=== PATIENT | female | born 1990 | race Caucasian/White ===

== ENCOUNTER 2017-11-30 11:17 | Emergency (ER) | payer OTHER ==
[~2017-11-30] VITALS: Ht 160 cm; Wt 86.2 kg
[~2017-11-30 11:17] MED LIST: ACEBUTCAFT PO; ALBU90I INH; ALBU90OI INH; ALBU90OI6 INH; ALBU90OI61 INH; AMOX500 PO; AMOX875 PO; AZIT250 PO; BENZ100A PO; CYCL10 PO; Cyclobenzaprine5 MG PO; DOXY100 PO; FLUO20 PO; FOLI1 PO; HYDACE5 PO; HYDACE5325 PO; LISI10 PO; METPRE4DP PO; MULVITMINE PO; NAPR550 PO; Naprosyn500 MG PO; OXYACE5T PO; PARO30 PO; PENVK500 PO; PERM5TC TOP; PRED20 PO; PREN-16 PO; PROCODE120 PO; PSEU120ER PO; RANI150 PO; RXALBOI INH; RXCYCL10 PO; RXHYDACE PO; RXNAPNA550 PO; RXPROM25 PO; SODCHL.65S; SULTRIDS PO; TRAM50 PO; Vistaril25 MG PO; [UNRECOGNIZED DRUG - REMARK]
[2017-11-30] MEDS ORDERED: LOSA25 PO (12:37)
[2017-11-30] MEDS ORDERED: NAPR500 PO (12:37)
[2017-11-30] MEDS ORDERED: METPRE4DP PO (12:53)
[2017-11-30] MEDS ORDERED: Augmentin 875-1 EACH PO (12:53)
[2017-11-30] MEDS ORDERED: BENZ100A PO (12:53)
[2017-11-30] MEDS ORDERED: Zithromax250 MG PO (13:05)
[2018-07-30] MEDS ORDERED: Roxicodone5 MG PO (02:48)
== END 2017-11-30 13:07 | disposition home or self-care (01) ==
LOC: ER 11:17
DX: O99.513 Diseases of the respiratory system complicating pregnancy, third trimester (principal); J01.90 Acute sinusitis, unspecified; O98.813 Other maternal infectious and parasitic diseases complicating pregnancy, third trimester; B96.89 Other specified bacterial agents as the cause of diseases classified elsewhere; J45.909 Unspecified asthma, uncomplicated; O10.913 Unspecified pre-existing hypertension complicating pregnancy, third trimester; O99.333 Smoking (tobacco) complicating pregnancy, third trimester; F17.200 Nicotine dependence, unspecified, uncomplicated; Z79.899 Other long term (current) drug therapy; Z79.2 Long term (current) use of antibiotics; Z3A.37 37 weeks gestation of pregnancy
CPT/HCPCS: 99283

== ENCOUNTER 2018-07-20 08:15 | Emergency (ER) | payer OTHER ==
[~2018-07-20] VITALS: Ht 160 cm; Wt 87.5 kg
[~2018-07-20 08:15] MED LIST changes: +Augmentin 875-1 EACH PO; +LOSA25 PO; +NAPR500 PO; +Zithromax250 MG PO
[2018-07-20] MEDS ORDERED: Cyclobenzaprine5 MG PO (09:05)
[2018-07-20] MEDS ORDERED: Baclofen10 MG PO (09:09)
== END 2018-07-20 09:32 | disposition home or self-care (01) ==
LOC: ER 08:15
DX: M54.42 Lumbago with sciatica, left side (principal); I10 Essential (primary) hypertension; F17.200 Nicotine dependence, unspecified, uncomplicated; Z79.899 Other long term (current) drug therapy; Z79.1 Long term (current) use of non-steroidal anti-inflammatories (NSAID)
CPT/HCPCS: 96372; 99282; J1885

== ENCOUNTER 2019-04-05 21:55 | Emergency (ER) | payer OTHER ==
[~2019-04-05] VITALS: Ht 157.5 cm; Wt 99.8 kg
[~2019-04-05 21:55] MED LIST changes: +Baclofen10 MG PO; +Roxicodone5 MG PO
[2019-04-05 22:39] LABS: BASOPHILS ABSOLUTE AUTO 0.04 K/mm3 (0.00-0.23); BASOPHILS PERCENT AUTO 0 % (0-2); EOSINOPHILS ABSOLUTE AUTO 0.32 K/mm3 (0.00-0.68); EOSINOPHILS PERCENT AUTO 2 % (0-6); Hematocrit 48.5 % (33.0-51.0); Hemoglobin 16.3 g/dL (11.5-16.0); IMMATURE GRAN ABSOLUTE AUTO 0.06 K/mm3 (0.00-0.10); IMMATURE GRAN PERCENT AUTO 0 % (0-1); LYMPHOCYTES ABSOLUTE AUTO 4.45 K/mm3 (0.84-5.20); LYMPHOCYTES PERCENT AUTO 30 % (21-46); MONOCYTES ABSOLUTE AUTO 0.95 K/mm3 (0.16-1.47); MONOCYTES PERCENT AUTO 6 % (4-13); Mean Corpuscular HGB 29.8 pg (26.0-34.0); Mean Corpuscular HGB Conc 33.6 g/dL (31.5-36.5); Mean Corpuscular Volume 89 fL (80-100); Mean Platelet Volume 10.6 fL (9.1-12.4); NEUTROPHILS ABSOLUTE AUTO 9.06 K/mm3 (1.96-9.15); NEUTROPHILS PERCENT AUTO 61 % (41-73); Platelet Count 286 K/mm3 (150-400); RDW Coefficient Variation 12.1 % (11.7-14.2); RDW Standard Deviation 39.7 fL (35.1-46.3); Red Blood Cell Count 5.47 M/mm3 (3.80-5.20); White Blood Cell Count 14.88 K/mm3 (4.00-11.30)
[2019-04-05 22:58] LABS: Alanine Aminotransfer (ALT/SGP 46 U/L (12-78); Albumin, Blood 3.9 g/dL (3.4-5.0); Alk Phos 59 U/L (50-136); Anion Gap 6 mmol/L (6-16); Aspartate Aminotrans (AST/SGOT 40 U/L (12-37); Bilirubin, Total 0.5 mg/dL (0.1-1.0); Blood Urea Nitrogen 16 mg/dL (8-24); CO2, Blood 25 mmol/L (21-32); Chloride, Blood 105 mmol/L (98-108); Globulin, Blood 4.1 g/dL (2.2-4.0); Glomerular Filtration Rate >60 (60-); Glucose, Blood 85 mg/dL (70-99); Potassium, Blood 4.2 mmol/L (3.5-5.5); Sodium, Blood 136 mmol/L (136-145)
== END 2019-04-06 01:22 | disposition home or self-care (01) ==
LOC: ER 21:55
PROVIDERS: Physician Assistant
DX: J20.9 Acute bronchitis, unspecified (principal); J06.9 Acute upper respiratory infection, unspecified; J45.909 Unspecified asthma, uncomplicated; I10 Essential (primary) hypertension; F17.210 Nicotine dependence, cigarettes, uncomplicated
CPT/HCPCS: 36415; 71046; 80053; 85025; 94640; 99283-25

== ENCOUNTER 2020-08-21 00:44 | Emergency (ER) | payer OTHER ==
[~2020-08-21] VITALS: Ht 157.5 cm; Wt 99.8 kg
[2020-08-21] MEDS ORDERED: Vibramycin100 MG PO (01:38)
== END 2020-08-21 01:47 | disposition home or self-care (01) ==
LOC: ER 00:44
DX: L02.214 Cutaneous abscess of groin (principal); I10 Essential (primary) hypertension; F17.210 Nicotine dependence, cigarettes, uncomplicated; Z79.899 Other long term (current) drug therapy
CPT/HCPCS: 10060; 99282-25

== ENCOUNTER 2020-11-17 05:38 | Emergency (ER) | payer OTHER ==
[~2020-11-17] VITALS: Ht 157.5 cm; Wt 99.8 kg
[~2020-11-17 05:38] MED LIST changes: +Vibramycin100 MG PO
[2020-11-17 06:16] LABS: Source, Urine Clean Catch
[2020-11-17 06:18] LABS: Appearance, Urine Clear (Clear); Bilirubin, Urine Neg (Neg); Blood, Urine 2+ (Neg); Color, Urine Yellow (P-Yellow); Glucose Qualitative, Urine Neg (Neg); Ketones, Urine 4+ (Neg); Leukocyte Esterase, Urine 1+ (Neg); Nitrite, Urine Neg (Neg); Protein, Urine 2+ (Neg); Specific Gravity, Urine 1.015 (1.003-1.022); Urobilinogen, Urine 1+ (Normal)
[2020-11-17] MEDS ORDERED: CLIN150 PO (06:18)
[2020-11-17] MEDS ORDERED: VIIBRYD1 EAC2 PO (06:20)
[2020-11-17 06:36] LABS: Bacteria Mod /hpf; Squamous Epithelial Cells Few /hpf (Few)
[2020-11-17 06:56] LABS: BASOPHILS ABSOLUTE AUTO 0.03 K/mm3 (0.00-0.23); BASOPHILS PERCENT AUTO 0 % (0-2); EOSINOPHILS ABSOLUTE AUTO 0.12 K/mm3 (0.00-0.68); EOSINOPHILS PERCENT AUTO 1 % (0-6); Hemoglobin 15.1 g/dL (11.5-16.0); IMMATURE GRAN ABSOLUTE AUTO 0.08 K/mm3 (0.00-0.10); IMMATURE GRAN PERCENT AUTO 1 % (0-1); LYMPHOCYTES ABSOLUTE AUTO 2.92 K/mm3 (0.84-5.20); LYMPHOCYTES PERCENT AUTO 18 % (21-46); MONOCYTES ABSOLUTE AUTO 0.91 K/mm3 (0.16-1.47); MONOCYTES PERCENT AUTO 6 % (4-13); Mean Corpuscular HGB 29.7 pg (26.0-34.0); Mean Corpuscular HGB Conc 34.3 g/dL (31.5-36.5); Mean Corpuscular Volume 87 fL (80-100); Mean Platelet Volume 10.3 fL (9.1-12.4); NEUTROPHILS ABSOLUTE AUTO 12.32 K/mm3 (1.96-9.15); NEUTROPHILS PERCENT AUTO 75 % (41-73); Platelet Count 254 K/mm3 (150-400); RDW Coefficient Variation 12.3 % (11.7-14.2); RDW Standard Deviation 38.8 fL (35.1-46.3); Red Blood Cell Count 5.08 M/mm3 (3.80-5.20); White Blood Cell Count 16.38 K/mm3 (4.00-11.30)
[2020-11-17 07:16] LABS: Alanine Aminotransfer (ALT/SGP 36 U/L (12-78); Albumin, Blood 3.6 g/dL (3.4-5.0); Alk Phos 68 U/L (50-136); Anion Gap 7 mmol/L (6-16); Aspartate Aminotrans (AST/SGOT 18 U/L (12-37); Bilirubin, Total 0.5 mg/dL (0.1-1.0); Blood Urea Nitrogen 13 mg/dL (8-24); Bun/Creatinine Ratio 20.8 (12.0-20.0); CO2, Blood 26 mmol/L (21-32); Calcium, Blood 9.1 mg/dL (8.5-10.1); Chloride, Blood 107 mmol/L (98-108); Creatinine, Blood 0.63 mg/dL (0.40-1.00); Globulin, Blood 3.6 g/dL (2.2-4.0); Glomerular Filtration Rate >60 (60-); Glucose, Blood 92 mg/dL (70-99); Potassium, Blood 3.5 mmol/L (3.5-5.5); Sodium, Blood 140 mmol/L (136-145); Total Protein, Blood 7.2 g/dL (6.4-8.2)
[2020-11-17] MEDS ORDERED: ONDA4ODT MM (08:29)
== END 2020-11-17 09:04 | disposition home or self-care (01) ==
LOC: ER 05:38
PROVIDERS: Emergency Medicine
DX: R11.2 Nausea with vomiting, unspecified (principal); R19.7 Diarrhea, unspecified; I10 Essential (primary) hypertension; F17.210 Nicotine dependence, cigarettes, uncomplicated; Z79.899 Other long term (current) drug therapy
CPT/HCPCS: 36415; 76705; 80053; 81001; 81025; 83690; 85025; 87086; 96361; 96374; 99284-25; J0780; J1200; J2405; J7030

== ENCOUNTER 2021-12-23 20:49 | Emergency (ER) | payer OTHER ==
[~2021-12-23] VITALS: Ht 157.5 cm; Wt 105.7 kg
[~2021-12-23 20:49] MED LIST changes: +CLIN150 PO; +ONDA4ODT MM; +VIIBRYD1 EAC2 PO
== END 2021-12-23 21:10 | disposition home or self-care (01) ==
LOC: ER 20:49
DX: U07.1 COVID-19 (principal); I10 Essential (primary) hypertension; J45.909 Unspecified asthma, uncomplicated; F17.200 Nicotine dependence, unspecified, uncomplicated
CPT/HCPCS: 99282

== ENCOUNTER 2024-03-08 22:24 | Emergency (ER) | payer OTHER ==
[~2024-03-08] VITALS: Ht 157.5 cm; Wt 97.5 kg
[2024-03-09] VITALS: BP 181/112
[2024-03-09] MEDS ORDERED: Albuterol 2.5 MG/3 ML VIAL INH ONE (00:05)
[2024-03-09] MEDS ORDERED: RX Prepack Albuterol 1 PREPACK/6.7 GM INH UD ONE (00:05)
[2024-03-09] MEDS ORDERED: Nicotine Polacrilex 2 MG Gum PO PRN (00:05)
[2024-03-09] MEDS ORDERED: PredniSONE 20 MG Tab PO ONE (00:05)
[2024-03-09] MEDS ORDERED: Losartan Potassium 50 MG Tab PO ONE (00:30)
[2024-03-09] MEDS ORDERED: Prednisone50 MG PO (00:47)
== END 2024-03-09 00:51 | disposition home or self-care (01) ==
LOC: ER 22:24
DX: J45.901 Unspecified asthma with (acute) exacerbation (principal); F17.210 Nicotine dependence, cigarettes, uncomplicated; F17.200 Nicotine dependence, unspecified, uncomplicated; I10 Essential (primary) hypertension; Z79.899 Other long term (current) drug therapy
CPT/HCPCS: 94640; 94664; 99284-25; A9270; J7512

== ENCOUNTER → 2024-07-24 | Outpatient (CLI) | payer OTHER ==
[~2024-07-24] MED LIST changes: +Prednisone50 MG PO
== END ==
LOC: LAB SHORT 17:10 → LAB 17:10
DX: J02.9 Acute pharyngitis, unspecified (principal)
CPT/HCPCS: 87081; 87147

== ENCOUNTER → 2024-08-21 | Outpatient (CLI) | payer OTHER ==
[2024-08-21 13:08] LABS: BASOPHILS ABSOLUTE AUTO 0.03 K/mm3 (0.00-0.23); BASOPHILS PERCENT AUTO 0 % (0-2); EOSINOPHILS ABSOLUTE AUTO 0.12 K/mm3 (0.00-0.68); EOSINOPHILS PERCENT AUTO 1 % (0-6); Hematocrit 44.4 % (33.0-51.0); IMMATURE GRAN ABSOLUTE AUTO 0.04 K/mm3 (0.00-0.10); IMMATURE GRAN PERCENT AUTO 0 % (0-1); LYMPHOCYTES ABSOLUTE AUTO 2.87 K/mm3 (0.84-5.20); LYMPHOCYTES PERCENT AUTO 21 % (21-46); MONOCYTES ABSOLUTE AUTO 1.09 K/mm3 (0.16-1.47); MONOCYTES PERCENT AUTO 8 % (4-13); Mean Corpuscular HGB 30.1 pg (26.0-34.0); Mean Corpuscular HGB Conc 33.8 g/dL (31.5-36.5); Mean Corpuscular Volume 89 fL (80-100); Mean Platelet Volume 10.4 fL (9.1-12.4); NEUTROPHILS PERCENT AUTO 70 % (41-73); Platelet Count 237 K/mm3 (150-400); RDW Coefficient Variation 12.7 % (11.7-14.2); RDW Standard Deviation 41.4 fL (35.1-46.3); Red Blood Cell Count 4.98 M/mm3 (3.80-5.20); White Blood Cell Count 13.75 K/mm3 (4.00-11.30)
[2024-08-21 13:21] LABS: Albumin, Blood 3.4 g/dL (3.4-5.0); Albumin/Globulin Ratio 0.9 (0.8-1.8); Bilirubin, Total 0.4 mg/dL (0.1-1.0); Calcium, Blood 8.6 mg/dL (8.5-10.1); Creatinine, Blood 0.8 mg/dL (0.40-1.00); Globulin, Blood 3.7 g/dL (2.2-4.0); Potassium, Blood 3.8 mmol/L (3.5-5.5); Total Protein, Blood 7.1 g/dL (6.4-8.2)
== END ==
LOC: LAB 12:56 → LAB SHORT 12:56
PROVIDERS: Physician Assistant Medical
DX: J02.9 Acute pharyngitis, unspecified (principal)
CPT/HCPCS: 80053; 85025; 87081

== ENCOUNTER → 2024-11-18 | Outpatient (CLI) | payer OTHER | END | disposition home or self-care (01) | LOC: LAB SHORT 16:36 → LAB 16:36 | DX: J02.9 Acute pharyngitis, unspecified (principal) | CPT/HCPCS: 87081 ==

== ENCOUNTER 2025-01-23 19:40 | Emergency (ER) | payer OTHER ==
[~2025-01-23] VITALS: Ht 157.5 cm; Wt 99.3 kg
[2025-01-23 19:59] VITALS: BP 161/110
[2025-01-23 20:06] LABS: BASOPHILS ABSOLUTE AUTO 0.02 K/mm3 (0.00-0.23); BASOPHILS PERCENT AUTO 0 % (0-2); EOSINOPHILS ABSOLUTE AUTO 0.06 K/mm3 (0.00-0.68); EOSINOPHILS PERCENT AUTO 1 % (0-6); Hematocrit 42.2 % (33.0-51.0); Hemoglobin 14.7 g/dL (11.5-16.0); IMMATURE GRAN ABSOLUTE AUTO 0.03 K/mm3 (0.00-0.10); IMMATURE GRAN PERCENT AUTO 0 % (0-1); LYMPHOCYTES ABSOLUTE AUTO 3.42 K/mm3 (0.84-5.20); LYMPHOCYTES PERCENT AUTO 32 % (21-46); MONOCYTES ABSOLUTE AUTO 0.62 K/mm3 (0.16-1.47); MONOCYTES PERCENT AUTO 6 % (4-13); Mean Corpuscular HGB 29.6 pg (26.0-34.0); Mean Corpuscular HGB Conc 34.8 g/dL (31.5-36.5); Mean Corpuscular Volume 85 fL (80-100); Mean Platelet Volume 10.1 fL (9.1-12.4); NEUTROPHILS ABSOLUTE AUTO 6.59 K/mm3 (1.96-9.15); NEUTROPHILS PERCENT AUTO 61 % (41-73); Platelet Count 244 K/mm3 (150-400); RDW Coefficient Variation 12.3 % (11.7-14.2); RDW Standard Deviation 37.7 fL (35.1-46.3); Red Blood Cell Count 4.97 M/mm3 (3.80-5.20); White Blood Cell Count 10.74 K/mm3 (4.00-11.30)
[2025-01-23 20:27] LABS: Albumin, Blood 3.5 g/dL (3.4-5.0); Albumin/Globulin Ratio 0.9 (0.8-1.8); Bilirubin, Total 0.5 mg/dL (0.1-1.0); Bun/Creatinine Ratio 19.3 (12.0-20.0); Calcium, Blood 8.9 mg/dL (8.5-10.1); Creatinine, Blood 0.52 mg/dL (0.40-1.00); Globulin, Blood 3.8 g/dL (2.2-4.0); Potassium, Blood 3.2 mmol/L (3.5-5.5); Total Protein, Blood 7.3 g/dL (6.4-8.2)
[2025-01-23 21:08] LABS: Influenza B, PCR NEGATIVE (NEGATIVE); Resp Syncytial Virus, PCR NEGATIVE (NEGATIVE); SARS-Cov-2 (COVID-19) PCR, MMC NEGATIVE (NEGATIVE)
[2025-01-23 21:16] LABS: Influenza A, PCR POSITIVE (NEGATIVE)
[2025-01-23] MEDS ORDERED: MethylPREDNISolone Sod Succ 125 MG Vial IV ONE (22:50)
[2025-01-23] MEDS ORDERED: Ipratropium/Albuterol SulF 2.5-0.5MG/3 ML Amp INH ONE (22:50)
[2025-01-24] MEDS ORDERED: ALBU90OI INH
[2025-01-24] MEDS ORDERED: PRED20 PO
== END 2025-01-24 00:15 | disposition home or self-care (01) ==
LOC: ER 19:40
PROVIDERS: Physician Assistant
DX: J45.901 Unspecified asthma with (acute) exacerbation (principal); J10.1 Influenza due to other identified influenza virus with other respiratory manifestations; F17.200 Nicotine dependence, unspecified, uncomplicated; I10 Essential (primary) hypertension; Z79.1 Long term (current) use of non-steroidal anti-inflammatories (NSAID); Z79.52 Long term (current) use of systemic steroids
CPT/HCPCS: 0241U; 71046; 80053; 84484; 85025; 93005; 93010; 94640; 94664; 99285-25; J2919

== ENCOUNTER → 2025-05-29 | Outpatient (CLI) | payer OTHER ==
[2025-05-29 16:45] LABS: BASOPHILS ABSOLUTE AUTO 0.05 K/mm3 (0.00-0.23); BASOPHILS PERCENT AUTO 0 % (0-2); EOSINOPHILS ABSOLUTE AUTO 0.25 K/mm3 (0.00-0.68); EOSINOPHILS PERCENT AUTO 2 % (0-6); Hematocrit 45.2 % (33.0-51.0); Hemoglobin 15.1 g/dL (11.5-16.0); Mean Corpuscular HGB Conc 33.4 g/dL (31.5-36.5); Mean Corpuscular Volume 90 fL (80-100); NRBC ABSOLUTE 0.00 K/mm3 (0.00-0.02); NRBC Auto 0.0 /100 WBC (0.0-0.2); Platelet Count 276 K/mm3 (150-400); RDW Coefficient Variation 12.8 % (11.7-14.2); RDW Standard Deviation 41.5 fL (35.1-46.3)
[2025-05-29 16:53] LABS: Alanine Aminotransfer (ALT/SGP 47.0 U/L (12-78); Albumin, Blood 3.5 g/dL (3.4-5.0); Albumin/Globulin Ratio 1.1 (0.8-1.8); Anion Gap 12.0 mmol/L (3-11); Aspartate Aminotrans (AST/SGOT 27.0 U/L (12-37); Bilirubin, Total 0.2 mg/dL (0.1-1.0); Blood Urea Nitrogen 11.0 mg/dL (8-24); CO2, Blood 25.0 mmol/L (21-32); Calcium, Blood 8.3 mg/dL (8.5-10.1); Chloride, Blood 106.0 mmol/L (98-108); Creatinine, Blood 0.83 mg/dL (0.40-1.00); Globulin, Blood 3.3 g/dL (2.2-4.0); Glucose, Blood 85.0 mg/dL (70-99); Potassium, Blood 3.6 mmol/L (3.5-5.5); Sodium, Blood 139.0 mmol/L (136-145); Total Protein, Blood 6.8 g/dL (6.4-8.2)
[2025-05-29 17:11] LABS: IMMATURE GRAN ABSOLUTE AUTO 0.05 K/mm3 (0.00-0.10); IMMATURE GRAN PERCENT AUTO 0 % (0-1); LYMPHOCYTES ABSOLUTE AUTO 4.44 K/mm3 (0.84-5.20); LYMPHOCYTES PERCENT AUTO 35 % (21-46); MONOCYTES ABSOLUTE AUTO 0.84 K/mm3 (0.16-1.47); MONOCYTES PERCENT AUTO 7 % (4-13); NEUTROPHILS ABSOLUTE AUTO 7.15 K/mm3 (1.96-9.15); NEUTROPHILS PERCENT AUTO 56 % (41-73)
== END ==
LOC: LAB 16:38 → LAB SHORT 16:38
PROVIDERS: Chiropractor
DX: D72.829 Elevated white blood cell count, unspecified (principal); E86.0 Dehydration
CPT/HCPCS: 80053; 85025; 85060

== ENCOUNTER → 2025-07-03 | Outpatient (CLI) | payer OTHER | LOC: LAB SHORT 09:05 → LAB 09:05 | DX: N39.0 Urinary tract infection, site not specified (principal) | CPT/HCPCS: 87077; 87086; 87186 ==